=== PATIENT | female | born 1980 | race Caucasian/White ===

== ENCOUNTER 2018-12-11 14:38 | Emergency (ER) | payer BC, OTHER ==
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
[2018-12-11] MEDS ORDERED: Meclizine TAB* 12.5 MG PO ONE (16:53)
[2018-12-11 16:55] LABS: ABS Basophils 0.1 10^3/ul (0-0.2); ABS Lymphocytes 1.5 10^3/ul (1.0-4.8); ABS Monocytes 0.7 10^3/ul (0-0.8); ABS Neutrophils 6.9 10^3/ul (1.5-7.7); Eosinophil % 0.4 %; Hematocrit 30 % (35-47); Hemoglobin 9.8 g/dL (12.0-16.0); Lymphocyte % 16.6 %; Mean Corpuscular HGB Conc 33 g/dL (31-36); Mean Corpuscular Hemoglobin 26 pg (27-31); Mean Corpuscular Volume 80 fL (80-97); Mean Platelet Volume 8.7 fL (7.4-10.4); Platelet Count 317 10^3/uL (150-450); Red Blood Count 3.75 10^6 /uL (3.70-4.87); Red Cell Distribution Width 16 % (10-15); White Blood Count 9.1 10^3/uL (3.5-10.8)
[2018-12-11 17:14] LABS: C Reactive Protein 1.14 mg/L (<8.01); Calcium 8.5 mg/dL (8.6-10.3); EGFR African American 157.1 (>60); EGFR Non-African American 129.8 (>60); Potassium 3.8 mmol/L (3.5-5.0); Total Bilirubin 0.2 mg/dL (0.2-1.0)
[2018-12-11 17:15] VITALS: BP 137/90
== END 2018-12-11 17:20 | disposition home or self-care (01) ==
LOC: ED 14:38
DX: S16.1XXA Strain of muscle, fascia and tendon at neck level, initial encounter (principal); S60.022A Contusion of left index finger without damage to nail, initial encounter; V49.49XA Driver injured in collision with other motor vehicles in traffic accident, initial encounter; Y92.410 Unspecified street and highway as the place of occurrence of the external cause
CPT/HCPCS: 36415; 72040; 73140; 80053; 83030; 85025; 86140; 86850; 86900; 86901; 99282; A9270-GY

== ENCOUNTER 2018-12-31 09:14 | Inpatient (IN) | payer BC ==
[2018-12-31] MEDS ORDERED: Lactated Ringers 1000 ML Bag* 1,000 ML IV ONE ×2 (09:42→19:01)
[2018-12-31] MEDS ORDERED: Buffered Lidocaine 1% SYRIN* 1 ML/SYRINGE INTRADERM ONE (09:42)
--- NOTE | 2018-12-31 09:59 | HP ---
General Information - Reason for Visit Pt arrives for IND for GHTN w/out e/o PEC. - General Information Maternal Age: 38 Grav: 3 Para: 1 SAB: 0 IEA: 1 Estimated Due Date: 01/12/19 Determined By: LMP Maternal Blood Type and Rh: A Positive - Results this Serology/RPR Result: Non-Reactive Rubella Result: Immune HBsAg Result: Negative HIV Result: Negative GBS Culture Result: Negative Past Medical History Delivery History: Hx Uncomplicated Vaginal Delivery Pertinent Past Medical History: Non-Contributory Pertinent Past Surgical History: None Pertinent Family History: Non-Contributory - Antepartal Records Antepartal Records: Reviewed, Uncomplicated Review of Systems Constitutional: Comfortable CV Complaint: No Respiratory: Shortness of Breath: No Gastrointestinal: No Nausea/Vomiting, Normal Bowel Movement Genitourinary: No Dysuria, No Bleeding, No Leaking Fluid Musculoskeletal: No Complaint, No Epigastric Pain Neurological: No Headache, No Visual Changes Movement: Normal Exam Allergies/Adverse Reactions: Allergies No Known Allergies Allergy (Verified 12/31/18 09:49) - Measurements Pre- Weight: 150 lb - Exam Breast: Breast Exam Deferred Extremities: No Edema Heart: Normal Rhythm/Heart Sounds HEENT: No Significant Findings Lungs: Clear Bilaterally Rectal: Rectal Exam Deferred - Abdominal Exam Abdomen Exam: Non-Tender - Ultrasound/Biophysical Profile Ultrasound Status: Bedside Exam - Vtx Targeted Exam Findings Cervical Exam: 2cm Effacement: 70% Station: -2 Presenting Part: Vertex Membrane Status: Intact EFM Findings - External Monitor Findings Baseline Heart Rate: 150 External Monitor Findings: Accelerations Present, No Pattern of Variable or Late Decelerations, Variability Moderate, Baseline Stable Contractions: None Assessment/Plan - Assessment @38.2wks for IND due to GHTN. - Obstetrical Risk Factors Obstetrical Risk Factors: Gestational Hypertension - Plan Plan: Induction
[2018-12-31] MEDS ORDERED: Lactated Ringers 1000 ML Bag* 1,000 ML IV SCH ×3 (10:00→23:45)
[2018-12-31] MEDS ORDERED: Oxytocin in LR* 20 UNITS/1,000 ML BAG IVPB SCH (10:00)
[2018-12-31 11:14] LABS: ABS Eosinophils 0.1 10^3/ul (0-0.6); ABS Lymphocytes 1.4 10^3/ul (1.0-4.8); ABS Monocytes 0.7 10^3/ul (0-0.8); ABS Neutrophils 7.9 10^3/ul (1.5-7.7); Eosinophil % 0.5 %; Hematocrit 32 % (35-47); Hemoglobin 10.4 g/dL (12.0-16.0); Lymphocyte % 14.2 %; Mean Corpuscular HGB Conc 32 g/dL (31-36); Mean Corpuscular Hemoglobin 25 pg (27-31); Mean Corpuscular Volume 77 fL (80-97); Platelet Count 330 10^3/uL (150-450); Red Cell Distribution Width 17 % (10-15); White Blood Count 10.1 10^3/uL (3.5-10.8)
[2018-12-31 11:29] LABS: Urine Benzodiazepine Screen None Detected (None Detect); Urine Opiates Screen None Detected (None Detect)
[2018-12-31] MEDS ORDERED: OBEPIDURAL* 250 ML EPIDURAL ONE (18:14)
[2018-12-31] MEDS ORDERED: Lidocaine 1% INJ* 10 MG/ML 30 ML SDV ONE (18:42)
[2018-12-31] MEDS ORDERED: Phenylephrine 40 MCG/ML SYRINGE IV PUSH PRN ×2 (19:01)
[2018-12-31] MEDS ORDERED: Sodium Citrate/Citric Acid* 15 ML UDC PO PRN (19:01)
[2018-12-31] MEDS ORDERED: Famotidine TAB* 20 MG PO PRN (19:01)
[2018-12-31] MEDS ORDERED: OBEPIDURAL* 250 ML EPIDURAL SCH (20:00)
[2018-12-31] MEDS ORDERED: Glycerin ADULT SUPP PR PRN (23:51)
[2018-12-31] MEDS ORDERED: Acetaminophen TAB* 325 MG PO PRN (23:51)
--- NOTE | 2019-01-01 00:02 | PROCNOTE ---
[facility] OB: Delivery Note - Delivery A Date of : 12/31/18 Time of : 23:28 Score 1 Minute: 9 Score 5 Minutes: 9 Gestational Age in Weeks and Days at Delivery: 38 Weeks and 2 Days Delivery Method: Spontaneous Vaginal Labor: Induced Did Patient attempt ?: N/A, No Previous Amniotic Fluid: Clear Estimated Blood Loss: 200 Anesthesia/Analgesia: CEI for Labor Delivered By: Raven Pedroza - Nursery Level of Nursery: Regular/Bedside - Perineum Perineal Injury: 1st Degree Perineal Repair: By Delivering Practioner - Events Delivery Events of Note: Pitocin During Labor - Additional Delivery Notes Additional Delivery Notes: Pt presented for induction of labor due to GHTN. She started pitocin and progressed very slowly to 3cm over about 8hrs, then received an epidural. A few hours later she was 4cm, underwent AROM and was repositioned. Less than 2hrs later she was fully dilated, +2 station and ready to push. She pushed 40min to deliver the 's head in DEWEY position, 1 loose nuchal cord easily reduced first. Then pushed to deliver the shoulders and the rest of the body. The baby was placed on the mom's abdomen. After more than 1 min the cord was clamped x2 and cut. The placenta delivered with gentle cord traction and fundal massage and appeared intact. A first degree lac was repaired with 3-0 vicryl in a figure of eight suture. Fundus firm and mom and baby stable.
[2019-01-01] MEDS: Dibucaine 1% 28.35 GM TUBE PR PRN (00:25)
[2019-01-01] MEDS: Witch Hazel PAD* JAR TOPICAL PRN (00:25)
[2019-01-01] MEDS: Ibuprofen TAB* 600 MG PO PRN ×3 (00:25→20:21)
[2019-01-01 08:15] LABS: ABS Lymphocytes 1.5 10^3/ul (1.0-4.8); ABS Monocytes 0.8 10^3/ul (0-0.8); ABS Neutrophils 14.8 10^3/ul (1.5-7.7); Eosinophil % 0.2 %; Hematocrit 25 % (35-47); Hemoglobin 8.1 g/dL (12.0-16.0); Lymphocyte % 8.7 %; Mean Corpuscular HGB Conc 32 g/dL (31-36); Mean Corpuscular Hemoglobin 25 pg (27-31); Mean Corpuscular Volume 78 fL (80-97); Mean Platelet Volume 8.6 fL (7.4-10.4); Platelet Count 230 10^3/uL (150-450); Red Blood Count 3.26 10^6 /uL (3.70-4.87); Red Cell Distribution Width 17 % (10-15); White Blood Count 17.3 10^3/uL (3.5-10.8)
[2019-01-01] MEDS ORDERED: Simethicone TAB* 80 MG TAB.CHEW PO SCH (08:30)
[2019-01-01] MEDS: Docusate CAP* 100 MG PO SCH ×3 (08:42→20:21)
[2019-01-01] MEDS: Ferrous Gluconate TAB* 324 MG TAB PO SCH (09:01)
[2019-01-02] MEDS: Dibucaine 1% 28.35 GM TUBE PR PRN (08:28)
[2019-01-02] MEDS: Ferrous Gluconate TAB* 324 MG TAB PO SCH (08:28)
[2019-01-02] MEDS: Witch Hazel PAD* JAR TOPICAL PRN (08:28)
[2019-01-02] MEDS: Docusate CAP* 100 MG PO SCH (08:28)
[2019-01-02] MEDS: Ibuprofen TAB* 600 MG PO PRN (08:28)
[2019-01-02 11:00] VITALS: BP 143/83
== END 2019-01-02 13:45 | disposition home or self-care (01) | DRG 560 ==
LOC: MCHOBOUT 09:14 → MCHOB 09:45
PROVIDERS: ADMIT Obstetrics & Gynecology; ATTEND Obstetrics & Gynecology
PROC: 10E0XZZ Delivery of Products of Conception, External Approach (ICD-10-PCS; principal; 2018-12-31)
PROC: 3E033VJ Introduction of Other Hormone into Peripheral Vein, Percutaneous Approach (ICD-10-PCS; 2018-12-31)
PROC: 10907ZC Drainage of Amniotic Fluid, Therapeutic from Products of Conception, Via Natural or Artificial Opening (ICD-10-PCS; 2018-12-31)
PROC: 0HQ9XZZ Repair Perineum Skin, External Approach (ICD-10-PCS; 2018-12-31)
DX: O13.4 Gestational [pregnancy-induced] hypertension without significant proteinuria, complicating childbirth (principal); Z37.0 Single live birth; O70.0 First degree perineal laceration during delivery; O69.81X0 Labor and delivery complicated by cord around neck, without compression, not applicable or unspecified; O90.81 Anemia of the puerperium; D64.9 Anemia, unspecified; Z3A.38 38 weeks gestation of pregnancy
CPT/HCPCS: 36415; 80307; 85025; 86850; 86900; 86901; A9270-GY

== ENCOUNTER 2020-09-30 21:01 | Inpatient (IN) ==
[2020-09-30] MEDS ORDERED: Lactated Ringers 1000 ml BAG 1,000 ML IV ONE (21:56)
[2020-09-30] MEDS ORDERED: Buffered Lidocaine 1% SYRIN 1 ml INTRADERM ONE (21:56)
[2020-09-30] MEDS ORDERED: Lactated Ringers 1000 ml BAG 1,000 ML IV SCH ×2 (22:00→23:45)
[2020-09-30 22:05] LABS: ABS Lymphocytes 2.1 10^3/ul (1.0-4.8); ABS Monocytes 0.7 10^3/ul (0-0.8); ABS Neutrophils 8.8 10^3/ul (1.5-7.7); Eosinophil % 0.4 %; Hematocrit 34 % (35-47); Hemoglobin 10.8 g/dL (12.0-16.0); Lymphocyte % 18.1 %; Mean Corpuscular HGB Conc 32 g/dL (31-36); Mean Corpuscular Hemoglobin 25 pg (27-31); Mean Corpuscular Volume 78 fL (80-97); Mean Platelet Volume 9.4 fL (7.4-10.4); Platelet Count 330 10^3/uL (150-450); Red Blood Count 4.29 10^6 /uL (3.70-4.87); Red Cell Distribution Width 17 % (10-15); White Blood Count 11.7 10^3/uL (3.5-10.8)
[2020-09-30] MEDS ORDERED: OBEPIDURAL 250 ML EPIDURAL ONE (22:10)
[2020-09-30 22:21] LABS: Urine Benzodiazepine Screen None Detected (None Detect); Urine Cannabinoids Screen None Detected (None Detect); Urine Opiates Screen None Detected (None Detect)
[2020-09-30] MEDS ORDERED: OBEPIDURAL 250 ML EPIDURAL SCH (23:45)
[2020-10-01 00:40] LABS: Urine Appearance Cloudy; Urine Bilirubin Negative (Negative); Urine Blood Negative (Negative); Urine Color Yellow; Urine Glucose Negative (Negative); Urine Ketones 2+ (Negative); Urine Nitrite Negative (Negative); Urine Protein 1+(30 mg/dL) (Negative); Urine Specific Gravity 1.024 (1.002-1.030); Urine Urobilinogen Negative (Negative)
[2020-10-01 00:51] LABS: Urine Bacteria Absent (Absent); Urine Red Blood Cell Trace(0-2/hpf) (Absent); Urine White Blood Cell Absent (Absent)
[2020-10-01] MEDS ORDERED: Oxytocin in LR 0 UNITS/0 ML BAG IVPB ONE (07:41)
[2020-10-01] MEDS ORDERED: Dibucaine 1% OINT 28.35 GM TUBE PR PRN (08:52)
[2020-10-01] MEDS ORDERED: Witch Hazel PAD JAR TOPICAL PRN (08:52)
[2020-10-01] MEDS ORDERED: Glycerin ADULT 2.4 gm SUPP PR PRN (08:52)
[2020-10-01 10:24] LABS: ABS Basophils 0.1 10^3/ul (0-0.2); ABS Monocytes 0.5 10^3/ul (0-0.8); ABS Neutrophils 16.6 10^3/ul (1.5-7.7); Eosinophil % 0.1 %; Hematocrit 30 % (35-47); Hemoglobin 9.6 g/dL (12.0-16.0); Lymphocyte % 5.5 %; Mean Corpuscular HGB Conc 32 g/dL (31-36); Mean Corpuscular Hemoglobin 25 pg (27-31); Mean Corpuscular Volume 78 fL (80-97); Platelet Count 263 10^3/uL (150-450); Red Blood Count 3.83 10^6 /uL (3.70-4.87); Red Cell Distribution Width 17 % (10-15); White Blood Count 18.1 10^3/uL (3.5-10.8)
[2020-10-01 10:40] LABS: Albumin 2.9 g/dL (3.2-5.2); Calcium 8.2 mg/dL (8.6-10.3); EGFR African American 129.7 (>60); EGFR Non-African American 107.2 (>60); Potassium 3.6 mmol/L (3.5-5.0); Total Bilirubin 0.4 mg/dL (0.2-1.0); Total Protein 5.9 g/dL (6.4-8.9)
[2020-10-02 06:43] LABS: ABS Basophils 0.1 10^3/ul (0-0.2); ABS Eosinophils 0.1 10^3/ul (0-0.6); ABS Lymphocytes 2.2 10^3/ul (1.0-4.8); ABS Monocytes 0.8 10^3/ul (0-0.8); ABS Neutrophils 6.7 10^3/ul (1.5-7.7); Eosinophil % 1.2 %; Hematocrit 29 % (35-47); Hemoglobin 9.5 g/dL (12.0-16.0); Lymphocyte % 22.3 %; Mean Corpuscular HGB Conc 32 g/dL (31-36); Mean Corpuscular Hemoglobin 26 pg (27-31); Mean Corpuscular Volume 79 fL (80-97); Mean Platelet Volume 8.6 fL (7.4-10.4); Platelet Count 261 10^3/uL (150-450); Red Cell Distribution Width 17 % (10-15); White Blood Count 9.9 10^3/uL (3.5-10.8)
[2020-10-02 08:56] VITALS: BP 119/88
== END 2020-10-02 13:20 | disposition home or self-care (01) | DRG 560 ==
LOC: MCHOBOUT 21:01 → MCHOB 21:30
PROVIDERS: ADMIT Midwife; ATTEND Midwife